=== PATIENT | male | born 1960 | race Caucasian/White ===

== ENCOUNTER 2023-12-22 18:55 | Emergency (ER) | payer OTHER ==
[2023-12-22 19:15] VITALS: BP 140/80; PULSE 85; RESP 18; TEMP 99.7; BMI 28.8
[2023-12-22] MEDS ORDERED: SODIUM CHLORIDE 1,000 ML IV STA (20:09)
[2023-12-22 20:29] LABS: HEMATOCRIT 40.2 % (35.4-49); HEMOGLOBIN 13.4 G/dL (11.7-16.9); MCH 29.7 pg (25.7-33.7); MCHC 33.4 g/dl (32.0-35.9); MEAN CELL VOLUME 88.8 fl (80-96); MEAN PLT VOLUME 8.3 fl (7.5-11.1); PLATELET COUNT 223.5 10^3/uL (134-434); RBC 4.53 10^6/uL (4.00-5.60); RDW 14.6 % (11.9-15.9); WHITE BLOOD COUNT 12.5 10^3/uL (4.0-10.8)
[2023-12-22 20:46] LABS: ALBUMIN 4.2 g/dl (3.4-5.0); BILIRUBIN,TOTAL 0.5 mg/dl (0.2-1); CALCIUM 9.2 mg/dl (8.5-10.1); CREATININE 0.8 mg/dl (0.6-1.3); POTASSIUM 3.6 mmol/L (3.5-5.1); TOT PROT 6.4 g/dl (6.4-8.2)
[2023-12-22 21:19] LABS: PLATELET ESTIMATE ADEQUATE
[2023-12-22] MEDS ORDERED: CEFTRIAXONE 1,000 MG in DEXTROSE 5%-WATER - 50 ML IVPB ONE (21:19)
[2023-12-22] MEDS ORDERED: cefTRIAXone SODIUM 1 GM VIAL ONE (21:20)
== END 2023-12-22 22:58 | disposition home or self-care (01) ==
LOC: FER 18:55
DX: J18.9 Pneumonia, unspecified organism (principal); J10.1 Influenza due to other identified influenza virus with other respiratory manifestations; R50.9 Fever, unspecified; R05.9 Cough, unspecified; R10.9 Unspecified abdominal pain; R53.81 Other malaise; Z20.822 Contact with and (suspected) exposure to COVID-19
CPT/HCPCS: 0241U-QW; 36415; 71045-TC-FY; 80053; 84484; 85027; 93005; 99285-25